=== PATIENT | female | born 1995 | race Caucasian/White ===

== ENCOUNTER 2018-08-26 14:17 | Emergency (ER) | payer BC ==
[~2018-08-26] VITALS: Ht 182.9 cm; Wt 127.0 kg
[2018-08-26 14:53] LABS: ABSOLUTE LYMPHOCYTES 2.4 thou/uL (0.8-5.3); ABSOLUTE MONOCYTES 0.4 thou/uL (0.0-1.2); ABSOLUTE NEUTROPHILS 2.3 thou/uL (1.6-8.1); BASOPHILS 0.4 %; EOSINOPHILS 0.9 %; HEMATOCRIT 41.9 % (37.0-47.0); HEMOGLOBIN 13.8 gm/dL (12.0-15.0); MCH 26.8 pg (26.0-34.0); MCV 81.1 fL (80.0-100.0); MONOCYTES 6.8 %; MPV 7.4 fl. (7.2-11.1); NUCLEATED RBCS 0 /100WBC; PLATELET COUNT* 202 thou/uL (150-400); POLYS 44.9 %; RBC 5.16 mil/uL (4.20-5.00); RDW-CV 13.8 % (10.5-14.5); WBC 5.2 thou/uL (4.0-11.0)
[2018-08-26 15:05] LABS: ALBUMIN 3.5 g/dL (3.4-5.0); CALCIUM 8.8 mg/dL (8.5-10.1); CREATININE 1.1 mg/dL (0.6-1.3); POTASSIUM 3.7 mmol/L (3.5-5.1); TOTAL BILIRUBIN 0.3 mg/dL (<0.1-1.0); TOTAL PROTEIN 7.9 g/dL (6.4-8.2)
[2018-08-26 15:21] LABS: URINE BILIRUBIN NEGATIVE (Negative); URINE BLOOD 3+ (Negative); URINE CLARITY CLEAR; URINE COLOR YELLOW; URINE GLUCOSE-RANDOM NEGATIVE (Negative); URINE KETONES NEGATIVE (Negative); URINE LEUKOCYTES-REFLEX NEGATIVE (Negative); URINE NITRITE-REFLEX NEGATIVE (Negative); URINE PROTEIN NEGATIVE (Negative); URINE SPECIFIC GRAVITY >= 1.030 (1.005-1.030); URINE UROBILINOGEN 0.2 E.U./dl (0.2-1.0)
[2018-08-26 15:52] LABS: SQUAMOUS >10 Many /LPF (0-3)
[2018-08-26 15:53] LABS: URINE RBC 0-2 Rare /HPF (0-2); URINE WBC-REFLEX 0-5 Rare /HPF (0-5)
[2018-08-26 15:55] LABS: AMORPHOUS URATES Many /LPF (None Seen); CASTS None Seen /LPF (None Seen); MUCUS None Seen strn/LPF (None Seen)
[2018-08-26] MEDS ORDERED: REGLAN 10 MG TA10 MG PO (15:58)
[2018-08-26] MEDS ORDERED: FLONASE 0.05%50 MCG NASAL (15:58)
[2018-08-26 16:05] VITALS: BP 123/55
== END 2018-08-26 16:06 | disposition home or self-care (01) ==
LOC: M.ERS 14:17
PROVIDERS: Nurse Practitioner Family
DX: R51 Headache (principal); R42 Dizziness and giddiness